=== PATIENT | female | born 1995 | race Two or more races ===

== ENCOUNTER 2023-08-03 15:25 | Observation (INO) | payer OTHER ==
[2023-08-03] MEDS ORDERED: METF-370 PO (17:25)
[2023-08-03] MEDS ORDERED: PREN-96 PO (17:25)
== END 2023-08-03 17:35 | disposition home or self-care (01) ==
LOC: UNDOADMOB 15:25 → LDRP 15:25
PROVIDERS: ADMIT Obstetrics & Gynecology; ATTEND Obstetrics & Gynecology
DX: O24.419 Gestational diabetes mellitus in pregnancy, unspecified control (principal); Z3A.35 35 weeks gestation of pregnancy
CPT/HCPCS: 59025; 76818; 81002; 82948; 82962; 94760; G0378

== ENCOUNTER 2023-08-08 10:00 | Observation (INO) | payer OTHER ==
[~2023-08-08] VITALS: Ht 165.1 cm; Wt 99.8 kg
[~2023-08-08 10:00] MED LIST: METF-370 PO; PREN-96 PO
== END 2023-08-08 11:52 | disposition home or self-care (01) ==
LOC: UNDOADMOB 10:00 → LDRP 10:00 → UNDODISOB 11:52
PROVIDERS: ADMIT Obstetrics & Gynecology; ATTEND Obstetrics & Gynecology
DX: O24.419 Gestational diabetes mellitus in pregnancy, unspecified control (principal); O26.893 Other specified pregnancy related conditions, third trimester; R51.9 Headache, unspecified; Z3A.36 36 weeks gestation of pregnancy
CPT/HCPCS: 59025; 76818; 81002; 82948; 94760; G0378

== ENCOUNTER 2023-08-11 12:45 | Observation (INO) | payer OTHER ==
[2023-08-11 14:10] LABS: Fern Testing Negative
== END 2023-08-11 14:36 | disposition home or self-care (01) ==
LOC: LDRP 12:45 → UNDOADMOB 12:45 → LDRP 12:53
PROVIDERS: ADMIT Obstetrics & Gynecology; ATTEND Obstetrics & Gynecology
DX: O24.419 Gestational diabetes mellitus in pregnancy, unspecified control (principal); O26.893 Other specified pregnancy related conditions, third trimester; N89.8 Other specified noninflammatory disorders of vagina; O62.9 Abnormality of forces of labor, unspecified; Z3A.36 36 weeks gestation of pregnancy
CPT/HCPCS: 59025; 76818; 81002; 82948; 82962; 84112; 94760; G0378; Q0114

== ENCOUNTER 2023-08-15 13:00 | Observation (INO) | payer OTHER | END 2023-08-15 14:21 | disposition home or self-care (01) | LOC: UNDOADMOB 13:00 → LDRP 13:00 | PROVIDERS: ADMIT Obstetrics & Gynecology; ATTEND Obstetrics & Gynecology | DX: O24.419 Gestational diabetes mellitus in pregnancy, unspecified control (principal); O62.9 Abnormality of forces of labor, unspecified; Z3A.37 37 weeks gestation of pregnancy | CPT/HCPCS: 59025; 76818; 81002; 82948; 82962; 94760; G0378 ==

== ENCOUNTER 2023-08-18 08:03 | Observation (INO) | payer OTHER | END 2023-08-18 11:14 | disposition home or self-care (01) | LOC: LDRP 08:03 → UNDOADMOB 08:03 → LDRP 09:28 | PROVIDERS: ADMIT Obstetrics & Gynecology; ATTEND Obstetrics & Gynecology | DX: O24.419 Gestational diabetes mellitus in pregnancy, unspecified control (principal); O60.03 Preterm labor without delivery, third trimester; O62.9 Abnormality of forces of labor, unspecified; Z3A.37 37 weeks gestation of pregnancy | CPT/HCPCS: 59025; 76818; 81002; 82948; 82962; G0378 ==

== ENCOUNTER 2023-08-22 13:03 | Observation (INO) | payer OTHER | END 2023-08-22 15:48 | disposition home or self-care (01) | LOC: LDRP 13:03 | PROVIDERS: ADMIT Obstetrics & Gynecology; ATTEND Obstetrics & Gynecology | DX: O24.419 Gestational diabetes mellitus in pregnancy, unspecified control (principal); O62.9 Abnormality of forces of labor, unspecified; Z3A.38 38 weeks gestation of pregnancy | CPT/HCPCS: 76818; 82962; G0378 ==

== ENCOUNTER 2023-08-22 13:33 | Inpatient (IN) | payer OTHER ==
[~2023-08-22] VITALS: Ht 165.1 cm; Wt 100.7 kg
[2023-08-22 14:33] LABS: Basophils # (auto) 0 10 ^3/uL (0-0.2); Basophils % (auto) 0.1 % (0.0-2.0); Eosinophils # (auto) 0 10 ^3/uL (0-0.8); Eosinophils % (auto) 0.5 % (0.0-7.0); Hematocrit 33.7 % (36.0-46.0); Lymphocytes # (auto) 1.1 10 ^3/uL (0.4-5.4); Lymphocytes % (auto) 10.6 % (10.0-50.0); Mean Corpuscular Hgb Conc. 32.8 g/dL (32.0-36.0); Mean Corpuscular Volume 82.5 fL (80.0-100.0); Monocytes # (auto) 0.4 10 ^3/uL (0-1.3); Monocytes % (auto) 4.4 % (0.0-12.0); Neutrophils # (auto) 8.5 10 ^3/uL (1.6-8.6); Neutrophils % (auto) 84.4 % (37.0-80.0); Nucleated Red Blood Cells % 0.1 %; Red Blood Cells 4.08 10^6/uL (4.0-5.20); Red Cell Distribution Width 16.7 % (11.8-14.3)
[2023-08-22 14:51] LABS: INR 0.86 (0.9-1.15); Partial Thromboplastin Time 25.1 SEC (24.5-34.5); Prothrombin Time 9.1 sec (9.3-11.8)
[2023-08-22 15:02] LABS: Alanine Aminotransferase 19 U/L (7-40); Albumin 3.7 g/dL (3.2-4.8); Alkaline Phosphatase 181 U/L (46-116); Anion Gap 10 (5-15); Aspartate Aminotransferase 15 U/L (13-40); BUN/Creatinine Ratio 15.3 (10.0-20.0); Bilirubin, Total 0.3 mg/dL (0.2-1.0); Blood Urea Nitrogen 11 mg/dL (9-23); Calcium 9.3 mg/dL (8.7-10.4); Carbon Dioxide 23 mmol/L (20-30); Chloride 105 mmol/L (98-107); Glucose 104 mg/dL (74-106); Potassium 4.1 mmol/L (3.5-5.1); Sodium 138 mmol/L (136-145); Total Protein 5.9 g/dL (5.7-8.2)
[2023-08-22 15:24] LABS: Urine Bacteria FEW /hpf (None Seen); Urine Blood Negative /uL (Negative); Urine Clarity HAZY (Clear); Urine Color Yellow (Yellow); Urine Mucus FEW (None Seen); Urine Protein, UAD TRACE (Negative); Urine Specific Gravity 1.021 (1.001-1.035); Urine Urobilinogen Normal (Negative); Urine WBC 14 /hpf (0 - 5); Urine pH 6.5 (5.0-8.0)
[2023-08-22 15:26] LABS: Amphetamine Screen, Urine Neg (NEGATIVE); Barbiturate Scree,Urine Neg (NEGATIVE); Benzodiazephine Screen, Urine Neg (NEGATIVE); Cannabinoid Screen, Urine Neg (NEGATIVE); Cocaine Screen, Urine Neg (NEGATIVE); Opiate Scree,Urine Neg (NEGATIVE); Phencyclidine Screen, Urine Neg (NEGATIVE)
[2023-08-23 08:07] LABS: RPR Non Reactive (Non Reactive)
[2023-08-24] VITALS (20 sets, daily range): BP systolic 100–125; BP diastolic 48–86; PULSE 60–93; RESP 14–18; TEMP 97.8–99.2; O2SAT 92–100
[2023-08-24] MEDS ORDERED: ceFAZolin 1GM/50ML 50 ML IV ONE (04:00)
[2023-08-24] MEDS ORDERED: LACTATED RINGER'S 1,000 ML IV ONE (04:00)
[2023-08-24] MEDS: LACTATED RINGER'S 1,000 ML IV SCH ×2 (05:16→11:46)
[2023-08-24] MEDS ORDERED: fentaNYL CITRATE 100 MCG/2 ML VL ONE (06:37)
[2023-08-24] MEDS ORDERED: oxyTOCIN 10 UNIT/ML 10ML VIAL ONE (06:37)
[2023-08-24] MEDS ORDERED: AZITHROMYCIN DIHYD 500 MG VIAL IV ONE (06:37)
[2023-08-24] MEDS ORDERED: MORPHINE SULF PF 5 MG/10 ML VIAL ONE (06:37)
[2023-08-24] MEDS ORDERED: ceFAZolin 2 GM/D5W100ml 100 ML IV ONE (06:45)
[2023-08-24] MEDS ORDERED: LACT. RINGERS/OXYTOCIN 20UNITS 1,000 ML IV ONE (07:00)
[2023-08-24] MEDS ORDERED: ceFAZolin 1GM/50ML 50 ML IV SCH (07:00)
[2023-08-24] MEDS ORDERED: ceFAZolin 1GM/50ML 100 ML IV ONE (07:00)
[2023-08-24] MEDS ORDERED: GUM (CHEWING) 1 GUM CHEW CHEW ONE (07:00)
[2023-08-24] MEDS ORDERED: ONDANSETRON HCL 4 MG/2 ML VIAL IV PRN ×2 (07:00→08:15)
[2023-08-24] MEDS ORDERED: DOCU-94 PO (07:02)
[2023-08-24] MEDS ORDERED: HYDR-4902 PO (07:02)
[2023-08-24] MEDS ORDERED: DexAMETHasone SOD PHOS 4 MG/1ML SDV INJ ONE (07:06)
[2023-08-24] MEDS ORDERED: HYDROmorphone HCL 2 MG/ML VL/or syr IV PRN (08:15)
[2023-08-24] MEDS ORDERED: NALBUPHINE HCL 10 MG/1ml INJECTION IV ONE (08:15)
[2023-08-24] MEDS ORDERED: diphenhdrAMINE HCL 50 MG/1 ML VL IV PRN (08:15)
[2023-08-24] MEDS ORDERED: NALOXONE HCL 0.4 MG/ML VIAL IV PRN (08:15)
[2023-08-24] MEDS ORDERED: PROMETHAZINE HCL 25 MG/ML 1ML IM PRN (11:30)
[2023-08-24 12:12] LABS: Basophils # (auto) 0 10 ^3/uL (0-0.2); Eosinophils # (auto) 0 10 ^3/uL (0-0.8); Hemoglobin 11.4 g/dL (12.2-16.2); Neutrophils # (auto) 13.6 10 ^3/uL (1.6-8.6)
[2023-08-24 12:14] LABS: Basophils % (auto) 0.2 % (0.0-2.0); Eosinophils % (auto) 0.1 % (0.0-7.0); Hematocrit 35.7 % (36.0-46.0); Lymphocytes # (auto) 0.8 10 ^3/uL (0.4-5.4); Lymphocytes % (auto) 5.7 % (10.0-50.0); Mean Corpuscular Hemoglobin 26.7 pg (28.0-32.0); Mean Corpuscular Volume 83.2 fL (80.0-100.0); Monocytes # (auto) 0.2 10 ^3/uL (0-1.3); Monocytes % (auto) 1.6 % (0.0-12.0); Neutrophils % (auto) 92.4 % (37.0-80.0); Red Blood Cells 4.28 10^6/uL (4.0-5.20); Red Cell Distribution Width 16.6 % (11.8-14.3); White Blood Cell 14.7 10^3/uL (4.4-10.8)
[2023-08-24] MEDS: ceFAZolin 1GM/50ML 50 ML IV SCH ×2 (15:14→23:43)
[2023-08-24] MEDS: ACETAMINOPHEN IV 1000 MG/100ML (10MG/ML) IV PRN (16:46)
[2023-08-24 19:06] LABS: Treponema pallidum Ab (FTA-Ab) Non Reactive (Non Reactive)
[2023-08-25] VITALS (8 sets, daily range): BP systolic 97–118; BP diastolic 53–74; PULSE 79–119; RESP 16–18; TEMP 98.3–99.1; O2SAT 91–98
[2023-08-25] MEDS ORDERED: KETOROLAC TROMETH 30 MG/ML 1ML VIAL IV PRN ×2 (00:30)
[2023-08-25] MEDS: ceFAZolin 1GM/50ML 50 ML IV SCH (07:22)
[2023-08-25] MEDS: ACETAMINOPHEN IV 1000 MG/100ML (10MG/ML) IV PRN (07:41)
[2023-08-25 07:57] LABS: Basophils # (auto) 0 10 ^3/uL (0-0.2); Basophils % (auto) 0.3 % (0.0-2.0); Eosinophils # (auto) 0 10 ^3/uL (0-0.8); Eosinophils % (auto) 0.3 % (0.0-7.0); Hematocrit 31.3 % (36.0-46.0); Hemoglobin 10.2 g/dL (12.2-16.2); Lymphocytes # (auto) 1.6 10 ^3/uL (0.4-5.4); Lymphocytes % (auto) 13.9 % (10.0-50.0); Mean Corpuscular Hemoglobin 27.1 pg (28.0-32.0); Mean Corpuscular Hgb Conc. 32.5 g/dL (32.0-36.0); Mean Corpuscular Volume 83.2 fL (80.0-100.0); Monocytes # (auto) 0.9 10 ^3/uL (0-1.3); Neutrophils # (auto) 9.1 10 ^3/uL (1.6-8.6); Neutrophils % (auto) 77.5 % (37.0-80.0); Nucleated Red Blood Cells % 0.1 %; Red Blood Cells 3.77 10^6/uL (4.0-5.20); Red Cell Distribution Width 16.2 % (11.8-14.3); White Blood Cell 11.7 10^3/uL (4.4-10.8)
[2023-08-25] MEDS ORDERED: BISACODYL 10 MG RECT SUPP PR PRN (12:00)
[2023-08-25] MEDS ORDERED: IBUPROFEN 800 MG TAB PO PRN (12:00)
[2023-08-25] MEDS ORDERED: HYDROcodone-ACET 5/325MG TAB PO PRN (12:00)
[2023-08-25] MEDS: HYDROcodone-ACET 5/325MG TAB PO PRN ×2 (12:49→21:31)
[2023-08-25] MEDS ORDERED: FERR30CA PO (17:37)
[2023-08-25] MEDS ORDERED: IBUP-1455 PO (17:37)
[2023-08-25] MEDS: KETOROLAC TROMETH 30 MG/ML 1ML VIAL IV PRN (17:45)
[2023-08-25] MEDS ORDERED: DOCUSATE SOD 100 MG CAP PO SCH (22:00)
[2023-08-26] MEDS: KETOROLAC TROMETH 30 MG/ML 1ML VIAL IV PRN (02:34)
[2023-08-26 03:00] VITALS: BP 110/65; PULSE 82; RESP 16; TEMP 98.8
[2023-08-26 06:30] VITALS: BP 121/71; PULSE 97; RESP 18; TEMP 98.9; O2SAT 98
[2023-08-26] MEDS ORDERED: TETANUS-DIPTH-ACEL PERTUSSIS 0.5ML SYR Tdap IM ONE (07:15)
[2023-08-26] MEDS: HYDROcodone-ACET 5/325MG TAB PO PRN (07:35)
[2023-08-26] MEDS ORDERED: DOCUSATE CALCIUM 240 MG CAP PO SCH (10:00)
== END 2023-08-26 09:09 | disposition home or self-care (01) | DRG 787 ==
LOC: LDRP 08-24 03:46
PROVIDERS: ADMIT Obstetrics & Gynecology; ATTEND Obstetrics & Gynecology
PROC: 10D00Z1 Extraction of Products of Conception, Low, Open Approach (ICD-10-PCS; principal; 2023-08-24 07:07)
DX: O69.81X0 Labor and delivery complicated by cord around neck, without compression, not applicable or unspecified (principal); R71.0 Precipitous drop in hematocrit; O34.211 Maternal care for low transverse scar from previous cesarean delivery; O99.02 Anemia complicating childbirth; Z37.0 Single live birth; Z3A.38 38 weeks gestation of pregnancy; Z28.21 Immunization not carried out because of patient refusal
CPT/HCPCS: 36415; 59025; 80053; 80307; 81001; 81002; 82948; 85025; 85610; 85730; 86592; 86850; 86900; 86901; 94760; 94762; 96360; 96361; 96365; 96366; 96372; 96374; G0378; J0131; J0690; J1100; J1885; J2405; J2590